=== PATIENT | female | born 1935 | race Caucasian/White ===

== ENCOUNTER 2019-03-13 15:22 | Observation (INO) | payer MEDICARE, MEDICAID ==
[~2019-03-13] VITALS: Ht 162.6 cm; Wt 57.4 kg
[~2019-03-13 15:22] MED LIST: BONIVA150 MG PO; COZAAR100 MG PO; CRESTOR10 MG PO; FOSAMAX70 MG PO; OS-CAL 500500 M1 PO; PRILOSEC20 MG PO; TOPROL XL PO; ZOLOFT100 MG PO
--- NOTE | 2019-03-13 15:39 | NUR ---
PT STRAIGHT TO ROOM 12 PER W/C, WITH AT BEDSIDE
--- NOTE | 2019-03-13 15:40 | NUR ---
PT DENIES ANY FEELING OF CHEST PAIN OR PALPITATIONS.
[2019-03-13] MEDS ORDERED: LOSARTAN POTASS50 MG PO (15:42)
[2019-03-13] MEDS ORDERED: METOPROL TAR25 MG PO (15:42)
[2019-03-13] MEDS ORDERED: SERTRALINE50 MG PO (15:42)
[2019-03-13] MEDS ORDERED: LORATADINE10 M1 PO (15:43)
[2019-03-13] MEDS ORDERED: ALENDRONATE SOD70 MG PO (15:45)
[2019-03-13 16:03] LABS: HEMATOCRIT 40.1 % (37.0-47.0); IMMATURE GRANULOCYTES 0.4 % (0.0-5.0); MEAN CELL VOLUME 88.1 fL CALC (80.0-100.0); MEAN CORPUSCULAR HGB 28.6 pG CALC (26.0-32.0); MEAN CORPUSCULAR HGB CONC 32.4 g/L CALC (32.0-36.0); NEUT# 8.41 thou/uL (2.00-7.15); RED BLOOD COUNT 4.55 mill/uL (4.20-5.60); RED CELL DISTRI WIDTH 13.2 % (11.5-15.5)
[2019-03-13 16:20] LABS: ALBUMIN 4.3 g/dL (3.2-5.0); ALKALINE PHOSPHATASE 73 u/l (38-126); ANION GAP 15 (6-22 (CALC)); BILIRUBIN, TOTAL 0.7 mg/dL (0.0-1.4); BUN 22 mg/dL (8-23); BUN/CREATININE RATIO 27 (12-20 (CALC)); CARBON DIOXIDE 27 mmol/l (22-30); CHLORIDE 102 mmol/l (95-108); CREATININE 0.8 mg/dL (0.5-1.0); GFR > 60 ML/MIN (>=60 (CALC)); GFR FOR AFR.AMER. > 60 ML/MIN (>=60 (CALC)); POTASSIUM 3.9 mmol/l (3.5-5.1); SGOT/AST 44 u/l (9-36); SODIUM 140 mmol/l (137-146); TOTAL PROTEIN 7.8 g/dL (6.3-8.2)
[2019-03-13 16:24] LABS: ACT PARTIAL THROMBO TIME 26.1 SECONDS (20.0-32.5); D-DIMER 0.33 mg/L (0.19-0.60); PROTHROMBIN TIME 10.4 SECONDS (9.0-12.5)
--- NOTE | 2019-03-13 16:25 | NUR ---
PT RESTING QUIETLY ON STRETCHER, STATES FEELS MUCH BETTER.
[2019-03-13 16:32] LABS: MYOGLOBIN 394 ng/mL (0 - 62)
--- NOTE | 2019-03-13 17:03 | NUR ---
VSS, PT DENIES ANY CHEST PAIN, RESTING QUIETLY ON STRETCHER WITH FAMILY AT BEDSIDE. CARDIZEM DRIP INFUSING.
--- NOTE | 2019-03-13 17:30 | NUR ---
SPOKE WITH DR. ZAMBRANO ON PHONE AND RECEIVED VERBAL ORDERS FOR ADMISSION, XARELTO 20 MG PO DAILY STARTING TONIGHT, CARDIAC DIET AND REGULAR ADMISSION ORDERS FOR ICU
--- NOTE | 2019-03-13 17:51 | NUR ---
PT REMAINS ALERT/ORIENTED X3, FAMILY AT BEDSIDE, LAUGHING AND TALKING. WARM BLANKET GIVEN
--- NOTE | 2019-03-13 18:07 | NUR ---
FAMILY CAME OUT OF ROOM STATING THEY WANT THE PT TRANSFERRED TO A BIGGER HOSPITAL WITH CARDIOLOGY. CHARGE NURSE NOTIFIED, AND RODNEY WENT INTO SPEAK WITH FAMILY. STATING THAT PT WOULD BE PLACED IN ICU AND DR. ZAMBRANO WOULD BE NOTIFIED OF FAMILYS WISHES AND THEY WOULD HAVE TO SPEAK WITH DR. ZAMBRANO.
--- NOTE | 2019-03-13 18:07 | NUR ---
AT BEDSIDE TO SPEAK WITH PT AND FAMILY PER WISHES TO BE TRANSFERRED TO LARGER FACILITY. FAMILY INFOMRED THAT DUE TO [employer] LAWS AND PATIENT BEING ADMITTED THAT WE ARE UNABLE TO TRANSFER AT THIS TIME. FAMILY REPORTS THEY TOLD THE REGISTRARS PREVIOUSLY OF THEIR WISHES WELL DR PRICE. PER DR PRICE FAMILY AND PT AGREED TO BE ADMITTED AND SEE DR BAUM TOMORROW. DR ZAMBRANO CONTACTED AND INFOMRED OF FAMILIES WISHES AND HE STATES "I AM NOT ABLE TO TRANSFER TONIGHT SHE DOES NOT NEED A HIGHER LEVEL OF CARE. THE FAMILY MAY DISCUSS WITH DR FORD IN THE MORNING OF THEIR WISHES AND CONCERNS". FAMILY UPDATED ON DR ZAMBRANO'S STATEMENT AND ARE STILL DEMANDING TRANSFER TO A "LARGER FACILITY".AGAINED EXPLAINED TO FAMILY THAT WE ARE NOT ABLE TO TRANSFER AT THIS TIME DUE TO PT NOT NEEDING A HIGHER LEVEL OF CARE. FAMILY INFOMRED ON PLAN OF CARE AND MONITORING FOR TONIGHT BUT STILL REMAIN ADAMENT FOR TRANSFER.
--- NOTE | 2019-03-13 18:21 | NUR ---
AT BEDSIDE WITH NURSING TURN DOWN ATTENDANT HARSHAL MITCHELL. WHEN ASKED PATIENT SHE DOES NOT CARE IF SHE IS TRANSFERRED OR STAYS HERE. FAMILY WAS AGAINED EXPLAINED THAT SHE CAN EITHER BE ADMITTED TO ICU OR LEAVE AGAINST MEDICAL ADVICE AND GO TO A LARGER HOSPITAL. FAMILY HAS AGREED TO KEEP PATIENT HERE OVER NIGHT AND SPEAK TO DR FORD IN THE MORNING ON TRANSFER TO A LARGER FACILITY. PT LYING IN STRETCHER WITH EYES CLOSED, IN NAD.
--- NOTE | 2019-03-13 18:21 | NUR ---
CATHETERIZATION LABORATORY TECHNICIAN CALLED HARSHAL MITCHELL RN TO COME SPEAK TO FAMILY. FAMILY IS UPSET THAT THE PT IS STILL TO BE ADMITTED TO ICU AT THIS HOSPITAL. PT SMILING AND REMAINS PAIN FREE, VSS, CARDIZEM DRIP INFUSING.
[2019-03-13 18:45] VITALS: BP 156/72
--- NOTE | 2019-03-13 18:58 | NUR ---
PT REPORT GIVEN TO ICU AND PT TAKEN TO FLOOR WITH SUZY.
[2019-03-13 19:00] VITALS: BP 166/72
[2019-03-13 19:30] VITALS: BP 153/73
--- NOTE | 2019-03-13 19:55 | NUR ---
PT ADMIT FROM ER VIA STRETCHER AT 1850. ALL MONITOR AND ROOM DEVICES APLIED AND EXPLAINED WITH RETURN DEMONSTRATION OF CALL LIGHT CONFIRMED. FAMILY TO BEDSIDE APROX 1930. REVIEWED AND EXPLAINED PLAN OF CARE FOR EVENING. FAMILY VERBALIZED ADDED CONCERN WITH PT ADMIT TO THIS HOSPITAL DUE TO NO SERVICE LIAISON REPRESENTATIVE OR HEART SURGERY ACCESS AVAILABLE. PT HAS FAMILY HISTORY OF MUCH CARDIAC ISSUES WITH BLOOD CLOTS AND HEART IRREGULARITIES LEADING TO DEMISE MANY IN THE MONTH OF MARCH. FAMILY HAS ASKED MANY QUESTIONS AND STATES MORE COMFORTABLE WITH PATIENT PLAN OF CARE. AWARE THAT MD CAN BE NOTIFIED AND TRANSFER ACCESSIBLE SHOULD PT NEED HIGHER LEVEL OF CARE. PT REMAINS IN AFIB RATE 60-70S. CARDIZEM DRIP RATE REDUCED FROM 10 TO 8MG/HR.
[2019-03-13 20:00] VITALS: BP 157/74
[2019-03-13 21:00] VITALS: BP 148/63
[2019-03-13 21:07] LABS: URINE BILIRUBIN - DIPSTICK NEGATIVE (NEGATIVE); URINE BLOOD DIPSTICK NEGATIVE (NEGATIVE); URINE COLOR YELLOW; URINE GLUCOSE - DIPSTICK NEGATIVE (NEGATIVE); URINE KETONE NEGATIVE (NEGATIVE); URINE LEUK ESTERASE NEGATIVE (NEGATIVE); URINE NITRITE - DIPSTICK NEGATIVE (Negative); URINE PROTEIN - DIPSTICK NEGATIVE (NEG-TRACE); URINE UROBILINOGEN - DIPSTICK 0.2 E.U./dL (0.2)
[2019-03-13 22:00] VITALS: BP 133/68
--- NOTE | 2019-03-13 22:00 | NUR ---
VOIDS IN BEDPAN. UA SPEC TO LAB. REMAINS ON CARDIZEM DRIP WEANED HR 60S.
[2019-03-14] VITALS (25 sets, daily range): BP systolic 115–174; BP diastolic 57–90
--- NOTE | 2019-03-14 | NUR ---
NAPS INTERMITTENTLY. DENIES ANY PAIN OR DISCOMFORT. REMAINS IN AFIB RATE RANGE 60-70S. CARDIZEM WEANED TO 7MH/HR INFUSING THROUGH LAC ACCESS.
--- NOTE | 2019-03-14 02:00 | NUR ---
NO CHANGE IN ASSESSMENT FROM PREVIOUS REPORT. REMAINS IN CONTROLLED AFIB ON IV CARDIZEM.
--- NOTE | 2019-03-14 04:00 | NUR ---
PT TO RECEIVE CARDIAC DIET FOR BREAKFAST. TO START ON XARELTO FIRST DOSE IN AM.
--- NOTE | 2019-03-14 06:00 | NUR ---
PT NAP INTERMITTENT THROUGH NIGHT. REMAINS IN AFIB USING IV CARDIZEM NOW AT 6MG/HR, HR RANGE 60-70S.
--- NOTE | 2019-03-14 07:45 | NUR ---
REPORT FROM TAMARA TEIXEIRA. PT ALERT ORIENTED AND SITTING AT THE SIDE OF BED TO EAT BREAKFAST. TELE A FIB WITH RATE INCREASING TO 160. CARDIZEM DRIP INCREASED TO 10 AT THIS TIME. PT NOT HAVING ANY PAIN OR OTHER SYMPTOMS. RESP EVEN AND UNLABORED. PT SIDE RAILS UP X2 AND CALL LIGHT IN REACH.
--- NOTE | 2019-03-14 08:15 | NUR ---
PT ASYMPTOMATIC AND RESTING QUIETLY IN BED WITH FAMILY HERE. RESP EVEN AND UNLABORED. NO CHEST PAIN. MD IN TO SEE PT. PT EDUCATED ON A FIB AND NEW MED ORDERED XERALTO. QUESTIONS ANSWERED AND INFORMATION GIVEN. HR AT 67 AT THIS TIME. CALL LIGHT IN REACH.
--- NOTE | 2019-03-14 09:30 | NUR ---
DR. FORD IN TO SEE PT. PLAN OF CARE UPDATED. PT AND FAMILY AT BEDSIDE EDUCATED ON PT CONDITION AND NEW MEDICATIONS. [place] GTT D/C'D PER DR. FORD.
--- NOTE | 2019-03-14 10:31 | NUR ---
PT RESTING QUIETLY IN BED WITH FAMILY AT BEDSIDE. PT HAS NO COMPLAINTS OR PAIN. NEW MEDS GIVEN AND HANDOUTS ON EACH GIVEN TO FAMILY. SEBASTIÁN WU HAS BEEN DC'D. SUPPORT GIVEN.
--- NOTE | 2019-03-14 12:31 | NUR ---
PT RESTING QUIETLY AFTER LUNCH. NO PAIN OR NEEDS AT THIS TIME. AT BEDSIDE. HR 87-87 ON TELE. CALL LIGHT IN REACH. SIDERAILS UP X2. SUPPORT GIVEN.
--- NOTE | 2019-03-14 16:43 | NUR ---
pt resting quietly with pt at bedside. no pain, sob, or questions. tele afib hr 93. siderails x2 up call light in reach. support given.
--- NOTE | 2019-03-14 16:51 | NUR ---
pt resting quietly in bed with no visual signs of distress at this time and no c/o. at bedside. tele Afib HR 84. support given.
--- NOTE | 2019-03-14 19:01 | NUR ---
PATIENT'S UPDATED WITH PATIENT'S PASSCODE AND ICU PHONE NUMBER, NOW LEAVING UNIT.
--- NOTE | 2019-03-14 23:40 | NUR ---
PATIENT LAYS SUPINE, AWAKENS EASILY WITH VERBAL STIMULI. NO NEEDS OR COMPLAINTS AT THIS TIME. CALL LIGHT WITHIN REACH. ON ROOM AIR, NO SOB NOTED. NO ACUTE DISTRESS NOTED.
[2019-03-15] VITALS (8 sets, daily range): BP systolic 135–157; BP diastolic 67–79
--- NOTE | 2019-03-15 02:28 | NUR ---
patient c/o of knee pain. offered to reposition. lays on her right side. call light within reach.
--- NOTE | 2019-03-15 02:36 | NUR ---
patient lays supine. rests with eyes closed. call light within reach.
--- NOTE | 2019-03-15 04:45 | NUR ---
patient lays supine, rests with eyes closed. afebrile, afib with heart rate ranging 60-s to 80's. no acute ditress shown. on room air. call light within reach.
--- NOTE | 2019-03-15 06:00 | NUR ---
PT WAS ASSISTED TO BATHROOM THIS MORNING BY THE OTHER NURSE. NURSE REPORTS SHE VOIDED ABOUT 150ML. NOW LAYS IN BED, NO ACUTE DISTRESS SHOWN. CALL LIGHT WITHIN REACH.
--- NOTE | 2019-03-15 08:22 | NUR ---
DR FORD @BEDSIDE WITH PT/. GUEST TRAY ORDERED FOR .
[2019-03-15] MEDS ORDERED: XARELTO20 MG PO (08:26)
[2019-03-15] MEDS ORDERED: TOPROL XL50 MG PO (08:26)
[2019-03-15] MEDS ORDERED: CARDIZEM CD120 MG PO (08:26)
--- NOTE | 2019-03-15 10:13 | NUR ---
PT OUT THE DOOR IN WC WITH AUX & IN STABLE CONDITION. PT DRESSED SELF FOR DC
== END 2019-03-15 10:13 | disposition home or self-care (01) ==
LOC: ED 15:22 → ED-I 17:16 → ED 17:43 → ICU 17:44
PROVIDERS: Family Medicine; ADMIT Internal Medicine; ATTEND Internal Medicine
DX: I48.91 Unspecified atrial fibrillation (principal); I44.7 Left bundle-branch block, unspecified; I51.7 Cardiomegaly; I10 Essential (primary) hypertension

== ENCOUNTER 2021-10-12 10:26 | Inpatient (IN) | payer MEDICARE, MEDICAID ==
[~2021-10-12] VITALS: Ht 162.6 cm; Wt 55.0 kg
[2021-10-12] VITALS (58 sets, daily range): BP systolic 123–174; BP diastolic 53–117
[~2021-10-12 10:26] MED LIST changes: +ALENDRONATE SOD70 MG PO; +CARDIZEM CD120 MG PO; +LORATADINE10 M1 PO; +LOSARTAN POTASS50 MG PO; +METOPROL TAR25 MG PO; +SERTRALINE50 MG PO; +TOPROL XL50 MG PO; +XARELTO20 MG PO
--- NOTE | 2021-10-12 10:26 | NUR ---
PATIENT ROOMED. NAD
[2021-10-12 10:54] LABS: IMMATURE GRANULOCYTES 0.3 % (0.0-5.0); MEAN CELL VOLUME 75.4 fL CALC (80.0-100.0); MEAN CORPUSCULAR HGB 22.4 pG CALC (26.0-32.0); MEAN CORPUSCULAR HGB CONC 29.7 g/dL CAL (32.0-36.0); NEUT# 4.81 thou/uL (2.00-7.15); RED BLOOD COUNT 3.7 mill/uL (4.20-5.60); RED CELL DISTRI WIDTH 15.3 % (11.5-15.5)
[2021-10-12 11:01] LABS: HEMATOCRIT 27.9 % (37.0-47.0); HEMOGLOBIN 8.3 g/dl (12.0-16.0)
[2021-10-12 11:09] LABS: ALBUMIN 3.8 g/dL (3.2-5.0); ALKALINE PHOSPHATASE 55 u/l (38-126); ANION GAP 12 (6-22 (CALC)); BILIRUBIN, TOTAL 0.6 mg/dL (0.0-1.4); BUN 14 mg/dL (8-23); BUN/CREATININE RATIO 22 (12-20 (CALC)); CARBON DIOXIDE 27 mmol/l (22-30); CHLORIDE 105 mmol/l (95-108); CREATININE 0.6 mg/dL (0.5-1.0); GFR FOR AFR.AMER. > 60 ML/MIN (>=60 (CALC)); GFR OTHER RACES > 60 ML/MIN (>=60 (CALC)); POTASSIUM 3.8 mmol/l (3.5-5.1); SGOT/AST 26 u/l (9-36); SODIUM 140 mmol/l (137-146); TOTAL PROTEIN 6.5 g/dL (6.3-8.2)
--- NOTE | 2021-10-12 11:30 | NUR ---
REASSESSED. FAMILY BEDSIDE. CALL LIGHT IN REACH. VITALS CHECKED.
--- NOTE | 2021-10-12 12:26 | NUR ---
REASSESSED. NAD. VITALS CHECKED. FAMILY BEDSIDE. CALL LIGHT IN REACH
--- NOTE | 2021-10-12 13:38 | NUR ---
REPORTED TO CHERRY DIPPERPasquale MATTHEWS THAT PATIENT HR DECREASED TO 88. CHERRY DIPPER INSTRUCTED TO HOLD OFF ON CARDIZEM DRIP AT THIS TIME. REAASSESSED. NAD. CALL LIGHT IN REACH.
[2021-10-12] MEDS ORDERED: CLARITIN10 M2 PO (13:59)
[2021-10-12] MEDS ORDERED: DILTIAZEM120 M1 PO (14:00)
[2021-10-12] MEDS ORDERED: METOPROLOL SUCC50 MG PO (14:02)
--- NOTE | 2021-10-12 14:26 | NUR ---
Reassessment of patient completed. No distress noted.
[2021-10-12 15:03] LABS: URINE BILIRUBIN - DIPSTICK NEGATIVE (NEGATIVE); URINE BLOOD DIPSTICK NEGATIVE (NEGATIVE); URINE COLOR YELLOW; URINE GLUCOSE - DIPSTICK NEGATIVE (NEGATIVE); URINE KETONE NEGATIVE (NEGATIVE); URINE LEUK ESTERASE NEGATIVE (NEGATIVE); URINE PH 7.5 (4.5-8.0); URINE PROTEIN - DIPSTICK NEGATIVE (NEG-TRACE); URINE SPECIFIC GRAVITY 1.015; URINE UROBILINOGEN - DIPSTICK 0.2 E.U./dL (0.2)
[2021-10-12 15:07] LABS: URINE NITRITE - DIPSTICK NEGATIVE (Negative)
--- NOTE | 2021-10-12 18:15 | NUR ---
REPORT GIVEN GLENNY MÉNDEZ. ROOM 5 ICU. NAD. FAMILY BEDSIDE.
--- NOTE | 2021-10-12 18:25 | NUR ---
PATIENT HAD BLOOD INFUSING, ON MONITOR AND REPORTED TO GLENNY MÉNDEZ VITAL SIGN DUE AT 1828. BLOOD CONSENT SENT WITH PATIENT
--- NOTE | 2021-10-12 18:27 | NUR ---
Patient arrived on floor at 1815 from ED with ED nurse by lisa, patient awake and alert, no c/o pain or discomfort, no s/s of distress, respirations even and unlabored on room air, patient transfusing 1 unit of blood ordered in ED. and daughter arrived with the patient from the ed.
--- NOTE | 2021-10-12 20:00 | NUR ---
PT ALERT AND ORIENTED, FOLLOWING COMMANDS. ONE UNIT OF BLOOD TRANSFUSSED. ADMISSION COMPLETED. PT AT BEDSIDE. SPOKE TO AND HE REQUESTED THAT PT RECEIVE A DOSE OF LOPRESSOR THIS EVENING. PTS HR WITHIN 100-115. ALL OTHER VITAL SIGNS ARE WITHIN NORMAL LIMITS. CALL LIGHT AND PERSONAL BELONGINGS WITHIN REACH. PT BEING CLOSELY MONITORED.
--- NOTE | 2021-10-12 20:24 | NUR ---
CONTACTED: [phone] FOR EMEGENCY FAMILY CONTACT
--- NOTE | 2021-10-12 22:00 | NUR ---
SHIFT REASSESSMENT - PTS HR IMPROVED SIGNIFICANTLY SINCE RECEIVING METOPROLOL. PT HR IN THE 70'S AT THIS TIME. PT HAS CALL LIGHT AND PERSONAL BELONGINGS WITHIN REACH. PT DENIES PAIN AT THIS TIME. WILL CONTINUE TO MONITOR CLOSELY.
[2021-10-12 22:50] LABS: HEMATOCRIT 35.8 % (37.0-47.0); HEMOGLOBIN 10.8 g/dl (12.0-16.0)
[2021-10-13] VITALS (84 sets, daily range): BP systolic 97–207; BP diastolic 61–117
--- NOTE | 2021-10-13 | NUR ---
SHIFT REASSESSMENT - NO CHANGE IN PTS STATUS AT THIS TIME. VITAL SIGNS ARE WITHIN NORMAL LIMITS. CALL LIGHT AND PERSONAL BELONGINGS WITHIN REACH. WILL CONTINUE TO MONITOR CLOSELY.
[2021-10-13 02:40] LABS: HEMATOCRIT 34.9 % (37.0-47.0); HEMOGLOBIN 10.6 g/dl (12.0-16.0)
--- NOTE | 2021-10-13 04:00 | NUR ---
SHIFT REASSESSMENT - NO CHANGE SINCE INITIAL ASSESSMENT. VITAL SIGNS ARE WITHIN NORMAL LIMITS. PT DENIES PAIN AT THIS TIME. CALL LIGHT AND PERSONAL BELONGINGS WITHIN REACH. WILL CONTINUE TO MONITOR CLOSELY.
[2021-10-13 07:00] LABS: HEMATOCRIT 34.8 % (37.0-47.0); HEMOGLOBIN 10.9 g/dl (12.0-16.0); MEAN CORPUSCULAR HGB 23.2 pG CALC (26.0-32.0); MEAN CORPUSCULAR HGB CONC 31.3 g/dL CAL (32.0-36.0); RED BLOOD COUNT 4.7 mill/uL (4.20-5.60); RED CELL DISTRI WIDTH 15.9 % (11.5-15.5)
[2021-10-13 07:26] LABS: ANION GAP 13 (6-22 (CALC)); BUN 16 mg/dL (8-23); BUN/CREATININE RATIO 25 (12-20 (CALC)); CARBON DIOXIDE 30 mmol/l (22-30); CHLORIDE 101 mmol/l (95-108); CREATININE 0.6 mg/dL (0.5-1.0); GFR FOR AFR.AMER. > 60 ML/MIN (>=60 (CALC)); GFR OTHER RACES > 60 ML/MIN (>=60 (CALC)); POTASSIUM 3.4 mmol/l (3.5-5.1); SODIUM 140 mmol/l (137-146)
--- NOTE | 2021-10-13 08:50 | NUR ---
pt up to BSC, steady gait with minimal assist, denies pain/SOB, on RA, HR steady in the 70's at rest but does increase with activity to 130's
--- NOTE | 2021-10-13 12:30 | NUR ---
pt with nausea/vomitting after beef broth at lunch, HR increased to 150's with nausea but back down to 70's-80's when at rest, at bedside
--- NOTE | 2021-10-13 19:45 | NUR ---
awake. denies active bleeding. equipment monitor phototypesetting shows a fib pvcs. saline lock in place. po fluids taken well. voids per bsc. fall precautions cont. @ bedside.
--- NOTE | 2021-10-13 20:30 | NUR ---
pt has called 3 times since left saying "these are wrong." pt referring to pulse ox, bp cuff & monitor tech. pt reassured.
--- NOTE | 2021-10-13 21:00 | NUR ---
pt has called 2 more times. said "this isn't working right." pt pointing to superintendent construction. when pt was asked if she knew how to read a superintendent construction she said "no." asked pt if she knew where she was. pt said "the hospital." pt reassured & instructed her it was time for sleep. pt vervalized understandg.
--- NOTE | 2021-10-13 23:00 | NUR ---
pt called out "can somebody help me?" pt has slept for short while now is awake. pt said "i heard some noise." instructed pt she is hearing other pts, nurses & other staff members taking care of others pts as she is not the only one in icu. pt denies being in the hospital. pt reassured.
[2021-10-14] VITALS (19 sets, daily range): BP systolic 106–174; BP diastolic 67–94
--- NOTE | 2021-10-14 00:05 | NUR ---
bed alarm sounding. pt attempting to get oob. instructed pt she was in the hospital. pt said "no i'm not." pt asked to speak to cayden. pt referring to nurse practitioner @ dr duong's office. instructed pt he worked @ dr liu office & not @ the hospital. pt conts to deny she's @ the hospital. pt reassured. bed alarm conts.
--- NOTE | 2021-10-14 00:30 | NUR ---
pt has removed route agent, pulse ox & bp cuff.
--- NOTE | 2021-10-14 01:00 | NUR ---
pt called out for "somebody help me." pt said she "saw somebody looking" @ her. pt pointed to clock on the wall. instructed pt no one was looking @ her. pt said "it had eyes, nose, arms & legs." she also said she "heard people talking." instructed pt she was in icu & she's hearing staff members. encouraged pt to sit in chair but she refused. pt remains in bed. bed alarm conts.
--- NOTE | 2021-10-14 03:00 | NUR ---
bed alarm sounding. sleeps for short time then awakens. assisted to bedside commode then back to bed. bed alarm conts.
--- NOTE | 2021-10-14 04:00 | NUR ---
bed alarm sounding. pt sitting on side of bed. assisted into bed. bed alarm conts.
--- NOTE | 2021-10-14 05:20 | NUR ---
lab here. blood drawn.
[2021-10-14 05:52] LABS: HEMATOCRIT 36.9 % (37.0-47.0); HEMOGLOBIN 11.1 g/dl (12.0-16.0); MEAN CELL VOLUME 76.2 fL CALC (80.0-100.0); MEAN CORPUSCULAR HGB 22.9 pG CALC (26.0-32.0); MEAN CORPUSCULAR HGB CONC 30.1 g/dL CAL (32.0-36.0); RED BLOOD COUNT 4.84 mill/uL (4.20-5.60); RED CELL DISTRI WIDTH 15.9 % (11.5-15.5)
[2021-10-14 06:21] LABS: ANION GAP 14 (6-22 (CALC)); BUN 18 mg/dL (8-23); BUN/CREATININE RATIO 24 (12-20 (CALC)); CARBON DIOXIDE 24 mmol/l (22-30); CHLORIDE 105 mmol/l (95-108); CREATININE 0.8 mg/dL (0.5-1.0); GFR FOR AFR.AMER. > 60 ML/MIN (>=60 (CALC)); GFR OTHER RACES > 60 ML/MIN (>=60 (CALC)); MAGNESIUM 2.1 mg/dL (1.6-2.3); POTASSIUM 4.1 mmol/l (3.5-5.1); SODIUM 139 mmol/l (137-146)
--- NOTE | 2021-10-14 06:32 | NUR ---
attempted to call (nima) @ [phone] to notify him of pts confusion. voicemail picked up & said mailbox is full. will try again later.
--- NOTE | 2021-10-14 09:48 | NUR ---
Patient is screened for PT intervention and may benefit from consult if medical agrees
--- NOTE | 2021-10-14 19:15 | NUR ---
awake. denies distress. no active bleeding. media monitor shows a fib pvcs. #18 lt wrist saline lock. po fluids taken well. voids per bsc. fall precautions & bed alarm cont. pt apologetic for confused behavior last night. pt reassured. instructed about need for sleep. pt verbalized undrstanding. pt aware of endoscopy in am.
--- NOTE | 2021-10-14 22:00 | NUR ---
eyes closed. no distress. chief of service shows a fib pvcs occas paced beats.
[2021-10-15] VITALS (40 sets, daily range): BP systolic 96–164; BP diastolic 57–89
--- NOTE | 2021-10-15 00:05 | NUR ---
npo in prep for endoscopy in am.
--- NOTE | 2021-10-15 02:00 | NUR ---
resting quietly. resps even & unlabored. no distress.
--- NOTE | 2021-10-15 04:59 | NUR ---
lab here. blood drawn.
--- NOTE | 2021-10-15 05:08 | NUR ---
up to bsc. hadsmall watery brown stool. placido well. denies c/o. bed alarm cont.
[2021-10-15 05:21] LABS: HEMATOCRIT 33.5 % (37.0-47.0); HEMOGLOBIN 10.5 g/dl (12.0-16.0); MEAN CELL VOLUME 74.4 fL CALC (80.0-100.0); MEAN CORPUSCULAR HGB 23.3 pG CALC (26.0-32.0); MEAN CORPUSCULAR HGB CONC 31.3 g/dL CAL (32.0-36.0); RED BLOOD COUNT 4.5 mill/uL (4.20-5.60); RED CELL DISTRI WIDTH 16.7 % (11.5-15.5)
[2021-10-15 05:34] LABS: ANION GAP 12 (6-22 (CALC)); BUN 12 mg/dL (8-23); BUN/CREATININE RATIO 19 (12-20 (CALC)); CARBON DIOXIDE 25 mmol/l (22-30); CHLORIDE 103 mmol/l (95-108); CREATININE 0.6 mg/dL (0.5-1.0); GFR FOR AFR.AMER. > 60 ML/MIN (>=60 (CALC)); GFR OTHER RACES > 60 ML/MIN (>=60 (CALC)); MAGNESIUM 1.9 mg/dL (1.6-2.3); POTASSIUM 3.8 mmol/l (3.5-5.1); SODIUM 136 mmol/l (137-146)
--- NOTE | 2021-10-15 07:20 | NUR ---
pt resting in bed with eyes closed; no apparent distress noted; easily aroused; assessment completed at this time; pt alert and oriented; some confusion noted; pt denies pain; no n/v noted; resp even and unlabored; lungs clear; skin color wnl; ra; hr irreg; strong pulses; no edema nored; paced/pac on monitor; no edema noted; abd soft with bs hyperactive; no bm noted per video games storywriter; no urine to inspect at this time; bsc; #22 to lac flushed and patent; saline locked; no redness or edema noted at site; plan of care/ am meds explained; call light within reach; will continue to monitor
--- NOTE | 2021-10-15 07:35 | NUR ---
pt transferred to OR via stretcher with OR staff
--- NOTE | 2021-10-15 09:50 | NUR ---
pt received back from OR in stable condition; ambulated to bed with steady gait; bedside report received; vs stable; no change in assessment; iv flushed and patent; will continue to monitor
--- NOTE | 2021-10-15 10:00 | NUR ---
awake in bed; appears drowsy; am meds explained and adminmistered; afib on monitor with occ paced beats; #22 to lac patent; assisted to bsc; call light within reach; will continue to monitor
--- NOTE | 2021-10-15 10:20 | NUR ---
family x2 at bedside; update provided
--- NOTE | 2021-10-15 11:20 | NUR ---
resting in bed with eyes closed; afib with occ paced beats; spoused at bedside; call light within reach; will continue to monitor
--- NOTE | 2021-10-15 12:05 | NUR ---
awake in bed eating lunch; no apparent distress noted; offers no complaints; lunch tray provided to spouse; iv intact; afib/pvc on monitor; call light within reach; will continue to monitor
--- NOTE | 2021-10-15 14:00 | NUR ---
resting in bed with eyes closed; spouse at bedside; easily aroused; offers no complaints; iv intact; afib/pvc/paced beats on the monitor; call light within reach; will continue to monitor
--- NOTE | 2021-10-15 14:28 | NUR ---
attempted nathaniel collect ua; mixed with stool
--- NOTE | 2021-10-15 14:35 | NUR ---
xray present at bedside
--- NOTE | 2021-10-15 16:10 | NUR ---
pt awake in bed; offers no complaints; spouse present at bedside; iv intact and patent; afib/pvc in monitpr/paced beats on monitor; call light within reach; will continue to monitor
[2021-10-15 16:51] LABS: URINE BILIRUBIN - DIPSTICK NEGATIVE (NEGATIVE); URINE BLOOD DIPSTICK NEGATIVE (NEGATIVE); URINE CLARITY CLEAR; URINE COLOR YELLOW; URINE GLUCOSE - DIPSTICK NEGATIVE (NEGATIVE); URINE KETONE NEGATIVE (NEGATIVE); URINE LEUK ESTERASE NEGATIVE (Negative); URINE NITRITE - DIPSTICK NEGATIVE (Negative); URINE PH 5.5 (4.5-8.0); URINE PROTEIN - DIPSTICK NEGATIVE (NEG-TRACE); URINE UROBILINOGEN - DIPSTICK 0.2 E.U./dL (0.2)
--- NOTE | 2021-10-15 18:09 | NUR ---
awake in bed eating dinner; offers no complaints; iv intact; spouse at bedside (meal provided as well); afib/pvc/paced on monitor; deny needs; call light within reach
--- NOTE | 2021-10-15 20:39 | NUR ---
PT ASSISTED TO BSC.
[2021-10-16] VITALS (13 sets, daily range): BP systolic 129–182; BP diastolic 66–103
--- NOTE | 2021-10-16 00:30 | NUR ---
ASSISTED TO BSC.
--- NOTE | 2021-10-16 01:43 | NUR ---
IV DRESSING CHANGED R/T BLEEDING AROUND SITE. IV FLUSHED AND SITE APPEARS TO BE HEALTHY.
--- NOTE | 2021-10-16 03:30 | NUR ---
PHLEBOTOMY AT BEDSIDE.
--- NOTE | 2021-10-16 04:06 | NUR ---
PT ASSISTED TO BSC.
[2021-10-16 04:07] LABS: HEMATOCRIT 32.7 % (37.0-47.0); HEMOGLOBIN 10.1 g/dl (12.0-16.0); MEAN CELL VOLUME 75.3 fL CALC (80.0-100.0); MEAN CORPUSCULAR HGB 23.3 pG CALC (26.0-32.0); MEAN CORPUSCULAR HGB CONC 30.9 g/dL CAL (32.0-36.0); RED BLOOD COUNT 4.34 mill/uL (4.20-5.60); RED CELL DISTRI WIDTH 17.2 % (11.5-15.5)
[2021-10-16 04:37] LABS: ANION GAP 10 (6-22 (CALC)); BUN 18 mg/dL (8-23); BUN/CREATININE RATIO 22 (12-20 (CALC)); CARBON DIOXIDE 29 mmol/l (22-30); CHLORIDE 102 mmol/l (95-108); CREATININE 0.8 mg/dL (0.5-1.0); GFR FOR AFR.AMER. > 60 ML/MIN (>=60 (CALC)); GFR OTHER RACES > 60 ML/MIN (>=60 (CALC)); MAGNESIUM 1.9 mg/dL (1.6-2.3); POTASSIUM 3.4 mmol/l (3.5-5.1); SODIUM 137 mmol/l (137-146)
--- NOTE | 2021-10-16 05:56 | NUR ---
PT ASSISTED TO BSC.
--- NOTE | 2021-10-16 07:30 | NUR ---
pt awake in bed; no apparent distress noted; pt offers no complaints; assessment completed at this time; pt alert and oriented to person and place; confused to time; denies pain; no n/v noted; resp even and unlabored; lungs clear; skin color wnl; ra; hr irreg; strong pulses; no edema noted; afib/pvc/ paced beats on the monitor; HR noted 110s on exertion; abd soft with bs present; no bm noted per greeting card writer; assisted to bsc; voiding clear yellow urine; #22 flushed and patent to lac; no redness or edema noted at site; plan of care/ am meds explained; call light within reach; assessment to be reported to Gaby Lake RN in care of patient; will continue to monitor
--- NOTE | 2021-10-16 08:01 | NUR ---
awake in bed; eating breakfast; offers no complaints; afib on monitor with occ paced beats; reported to Gaby Lake RN;
--- NOTE | 2021-10-16 08:33 | NUR ---
Dr oJel present at bedside to assess pt and discuss plan of care; cleared from surgical for discharge
--- NOTE | 2021-10-16 09:30 | NUR ---
awake in bed; offers no complaints; iv intact and patent; no redness or edema noted at site; spouse at bedside; afib/pvc/occ paced on monitor; call light within reach; will continue to monitor
[2021-10-16] MEDS ORDERED: SERTRALINE50 MG PO (09:59)
[2021-10-16] MEDS ORDERED: PROTONIX40 M2 PO (10:00)
--- NOTE | 2021-10-16 10:10 | NUR ---
Dr Cerda present at bedside to assess pt and discuss plan of care
--- NOTE | 2021-10-16 11:13 | NUR ---
awake in bed; offers no complaints; iv removed; will continue to monitor
--- NOTE | 2021-10-16 12:00 | NUR ---
awake sitting at the side of the bed eating lunch; spouse at bedside and provided meal; iv removed with catheter intact;will continue to monitor
--- NOTE | 2021-10-16 12:15 | NUR ---
Discharge instructions given. Patient verbalizes understanding of same. Discharged in stable condition via Wheelchair to Home with spouse. All belongings sent with pt.
== END 2021-10-16 12:20 | DRG 309 ==
LOC: ED 10:26 → ED-I 12:14 → ED 12:14 → ED-I 13:30 → ICU 13:57 → ED 13:57 → ICU 10-16 12:20
PROVIDERS: Family Medicine; ADMIT Internal Medicine; ATTEND Internal Medicine
PROC: 30233N1 Transfusion of Nonautologous Red Blood Cells into Peripheral Vein, Percutaneous Approach (ICD-10-PCS; principal; 2021-10-12)
PROC: 0DJD8ZZ Inspection of Lower Intestinal Tract, Via Natural or Artificial Opening Endoscopic (ICD-10-PCS; 2021-10-15)
PROC: 0DJ08ZZ Inspection of Upper Intestinal Tract, Via Natural or Artificial Opening Endoscopic (ICD-10-PCS; 2021-10-15)
DX: I48.91 Unspecified atrial fibrillation (principal); D62 Acute posthemorrhagic anemia; K92.2 Gastrointestinal hemorrhage, unspecified; I10 Essential (primary) hypertension; F03.90 Unspecified dementia, unspecified severity, without behavioral disturbance, psychotic disturbance, mood disturbance, and anxiety; K21.9 Gastro-esophageal reflux disease without esophagitis; F41.9 Anxiety disorder, unspecified; K64.8 Other hemorrhoids; K64.4 Residual hemorrhoidal skin tags; K44.9 Diaphragmatic hernia without obstruction or gangrene; Z79.01 Long term (current) use of anticoagulants; Z20.822 Contact with and (suspected) exposure to COVID-19
CPT/HCPCS: J1756; P9016; S0164

== ENCOUNTER 2021-10-22 12:53 | Observation (INO) | payer MEDICARE, MEDICAID ==
[~2021-10-22] VITALS: Ht 162.6 cm; Wt 56.0 kg
[2021-10-22] VITALS (16 sets, daily range): BP systolic 113–143; BP diastolic 57–107
[~2021-10-22 12:53] MED LIST changes: +CLARITIN10 M2 PO; +DILTIAZEM120 M1 PO; +METOPROLOL SUCC50 MG PO; +PROTONIX40 M2 PO
[2021-10-22 13:40] LABS: HEMATOCRIT 42.6 % (37.0-47.0); HEMOGLOBIN 13.2 g/dl (12.0-16.0); IMMATURE GRANULOCYTES 0.3 % (0.0-5.0); MEAN CELL VOLUME 78.3 fL CALC (80.0-100.0); MEAN CORPUSCULAR HGB 24.3 pG CALC (26.0-32.0); NEUT# 4.45 thou/uL (2.00-7.15); RED BLOOD COUNT 5.44 mill/uL (4.20-5.60)
[2021-10-22 13:55] LABS: ALBUMIN 3.8 g/dL (3.2-5.0); CREATININE 1.3 mg/dL (0.5-1.0); TOTAL PROTEIN 6.7 g/dL (6.3-8.2)
[2021-10-22 14:09] LABS: POTASSIUM 2.7 mmol/l (3.5-5.1)
[2021-10-22 16:27] LABS: URINE BILIRUBIN - DIPSTICK NEGATIVE (NEGATIVE); URINE BLOOD DIPSTICK NEGATIVE (NEGATIVE); URINE COLOR YELLOW; URINE GLUCOSE - DIPSTICK NEGATIVE (NEGATIVE); URINE KETONE NEGATIVE (NEGATIVE); URINE LEUK ESTERASE NEGATIVE (NEGATIVE); URINE PH 5.5 (4.5-8.0); URINE PROTEIN - DIPSTICK NEGATIVE (NEG-TRACE); URINE UROBILINOGEN - DIPSTICK 0.2 E.U./dL (0.2)
[2021-10-22 16:32] LABS: URINE NITRITE - DIPSTICK NEGATIVE (Negative)
[2021-10-23] VITALS (11 sets, daily range): BP systolic 133–163; BP diastolic 63–84
[2021-10-23 05:33] LABS: HEMATOCRIT 38.4 % (37.0-47.0); MEAN CELL VOLUME 78.9 fL CALC (80.0-100.0); MEAN CORPUSCULAR HGB 24.6 pG CALC (26.0-32.0); MEAN CORPUSCULAR HGB CONC 31.3 g/dL CAL (32.0-36.0); RED BLOOD COUNT 4.87 mill/uL (4.20-5.60); RED CELL DISTRI WIDTH 19.8 % (11.5-15.5)
[2021-10-23 05:58] LABS: ANION GAP 11 (6-22 (CALC)); BUN 27 mg/dL (8-23); BUN/CREATININE RATIO 32 (12-20 (CALC)); CARBON DIOXIDE 28 mmol/l (22-30); CHLORIDE 105 mmol/l (95-108); CREATININE 0.8 mg/dL (0.5-1.0); GFR FOR AFR.AMER. > 60 ML/MIN (>=60 (CALC)); GFR OTHER RACES > 60 ML/MIN (>=60 (CALC)); MAGNESIUM 2.2 mg/dL (1.6-2.3); POTASSIUM 3.1 mmol/l (3.5-5.1); SODIUM 141 mmol/l (137-146)
[2021-10-24 00:01] VITALS: BP 146/68
[2021-10-24 04:22] VITALS: BP 139/63
[2021-10-24 06:05] LABS: BUN 17 mg/dL (8-23); BUN/CREATININE RATIO 25 (12-20 (CALC)); CARBON DIOXIDE 26 mmol/l (22-30); CHLORIDE 104 mmol/l (95-108); CREATININE 0.7 mg/dL (0.5-1.0); GFR FOR AFR.AMER. > 60 ML/MIN (>=60 (CALC)); GFR OTHER RACES > 60 ML/MIN (>=60 (CALC)); SODIUM 140 mmol/l (137-146)
[2021-10-24 06:07] LABS: ANION GAP 13 (6-22 (CALC)); POTASSIUM 3.4 mmol/l (3.5-5.1)
[2021-10-24 06:08] LABS: MAGNESIUM 1.6 mg/dL (1.6-2.3)
[2021-10-24 06:23] VITALS: BP 155/79
[2021-10-24 08:38] VITALS: BP 130/64
[2021-10-24 11:10] VITALS: BP 152/68
== END 2021-10-24 13:25 | disposition home or self-care (01) ==
LOC: ED 12:53 → ED-I 13:45 → ED 14:28 → MS2 14:29
PROVIDERS: Family Medicine; ADMIT Internal Medicine; ATTEND Internal Medicine
DX: R42 Dizziness and giddiness (principal); R53.83 Other fatigue; U07.1 COVID-19; E87.6 Hypokalemia; N17.9 Acute kidney failure, unspecified; F03.90 Unspecified dementia, unspecified severity, without behavioral disturbance, psychotic disturbance, mood disturbance, and anxiety; I10 Essential (primary) hypertension; I48.20 Chronic atrial fibrillation, unspecified; Z79.899 Other long term (current) drug therapy; Z87.19 Personal history of other diseases of the digestive system
CPT/HCPCS: J3475

== ENCOUNTER 2022-05-25 13:47 | Observation (INO) | payer MEDICARE, MEDICAID ==
[~2022-05-25] VITALS: Ht 162.6 cm; Wt 51.8 kg
[2022-05-25] VITALS (26 sets, daily range): BP systolic 127–176; BP diastolic 64–110
[2022-05-25 14:53] LABS: ALBUMIN 4.5 g/dL (3.2-5.0); ALKALINE PHOSPHATASE 71 u/l (38-126); ANION GAP 13 (6-22 (CALC)); BILIRUBIN, TOTAL 0.8 mg/dL (0.02-1.3); BUN 16 mg/dL (8-23); BUN/CREATININE RATIO 23 (12-20 (CALC)); CARBON DIOXIDE 30 mmol/l (22-30); CHLORIDE 100 mmol/l (95-108); CREATININE 0.7 mg/dL (0.5-1.0); GFR FOR AFR.AMER. > 60 ML/MIN (>=60 (CALC)); GFR OTHER RACES > 60 ML/MIN (>=60 (CALC)); LIPASE 54 u/l (23-300); POTASSIUM 3.8 mmol/l (3.5-5.1); SGOT/AST 33 u/l (9-36); SODIUM 140 mmol/l (137-146); TOTAL PROTEIN 7.7 g/dL (6.3-8.2)
[2022-05-25 14:54] LABS: BASO% 0.6 % (0-3); EOS% 3.9 % (0-8); HEMATOCRIT 40.5 % (37.0-47.0); HEMOGLOBIN 13.6 g/dl (12.0-16.0); IMMATURE GRANULOCYTES 0.6 % (0.0-5.0); LYMPH% 8.8 % (15-41); MEAN CELL VOLUME 86.7 fL CALC (80.0-100.0); MEAN CORPUSCULAR HGB 29.1 pG CALC (26.0-32.0); MEAN CORPUSCULAR HGB CONC 33.6 g/dL CAL (32.0-36.0); MONO% 10.6 % (2-13); NEUT# 7.19 thou/uL (2.00-7.15); NEUT% 75.5 % (42-76); RED BLOOD COUNT 4.67 mill/uL (4.20-5.60); RED CELL DISTRI WIDTH 12.6 % (11.5-15.5)
[2022-05-26 04:00] VITALS: BP 145/69
[2022-05-26 06:21] VITALS: BP 143/74
[2022-05-26 07:21] VITALS: BP 143/74
[2022-05-26 07:40] VITALS: BP 149/73
[2022-05-26] MEDS ORDERED: LOSARTAN POTASS50 MG PO (08:58)
[2022-05-26 09:59] VITALS: BP 125/61
[2022-05-26 10:59] VITALS: BP 125/61
== END 2022-05-26 13:24 | disposition home or self-care (01) ==
LOC: ED 13:47 → ED-I 16:00 → ED 17:37 → MS2 17:38
PROVIDERS: Emergency Medicine; ADMIT Internal Medicine; ATTEND Internal Medicine
DX: I48.91 Unspecified atrial fibrillation (principal); R79.89 Other specified abnormal findings of blood chemistry; I10 Essential (primary) hypertension; F03.90 Unspecified dementia, unspecified severity, without behavioral disturbance, psychotic disturbance, mood disturbance, and anxiety; Z95.0 Presence of cardiac pacemaker

== ENCOUNTER 2023-04-05 15:31 | Emergency (ER) | payer MEDICARE, MEDICAID ==
[~2023-04-05] VITALS: Ht 162.6 cm; Wt 53.9 kg
[2023-04-05 15:42] VITALS: BP 167/81
[2023-04-05 16:00] VITALS: BP 140/66
[2023-04-05] MEDS ORDERED: METHOCARBAMOL500 MG PO (16:28)
[2023-04-05 16:30] VITALS: BP 148/72
[2023-04-05 16:31] VITALS: BP 148/72
== END 2023-04-05 16:40 | disposition home or self-care (01) ==
LOC: ED 15:31
DX: S76.911A Strain of unspecified muscles, fascia and tendons at thigh level, right thigh, initial encounter (principal); I10 Essential (primary) hypertension; W01.0XXA Fall on same level from slipping, tripping and stumbling without subsequent striking against object, initial encounter